=== PATIENT | female | born 1945 | race Caucasian/White ===

== ENCOUNTER → 2018-11-03 12:08 | Outpatient (CLI) | payer MEDICARE, MEDICAID, SELFPAY ==
--- NOTE | 2018-11-03 12:17 | CA_ITS ---
PROCEDURE: 2-D M-mode and color Doppler study INDICATIONS FOR THE TEST: Chest pain COPDX Heart Murmur Tobacco SmokingEX Palpitations Fatigue Syncope Edema HypertensionXDiabetes Mellitus Rheumatic Fever SOBXDOE Obesity HyperlipidemiaX Family History HD Additional History AF,CAD,BRADYCARDIA PATIENT INFORMATION HEIGHT: 62 WEIGHT:214 GENDER: Female B/P: 2-D/M-MODE INTERPRETATION: 2-D MEASUREMENTS OBSERVED VALUES IN CMS Right Ventricular Dimension (RVDd) 2.6 Interventricular Septum (Thickness)(IVsd) 1.2 Left Ventricular Internal Dimensions(LVIDd) 5.3 Left Ventricular Posterior Wall (Thickness)(LVPWd) .9 Aortic Root 3.0 Aortic Cusp Separation 1.7 Left Atrial Dimensions (LAD) 3.3 2D 1. Left atrium is mildly enlarged, left ventricle is normal size, mild concentric left ventricular hypertrophy, visually estimated ejection fraction 55% with no regional wall motion abnormality. 2. The right atrium and right ventricle are mildly enlarged with normal contractility. 3. The aortic valve is thickened and calcified leaflet continue to display mobility. 4. The mitral and tricuspid valve leaflets are minimally thickened. 5. The pulmonic valve is poorly visualized. 6. No significant pericardial effusion noted. DOPPLER INTERROGATION: Doppler interrogation of the aortic, mitral and tricuspid valvular presence of mild aortic, mild mitral and tricuspid regurgitation, tricuspid regurgitation jet velocity is inadequate for calculation of the right ventricular systolic pressure, grade 1 diastolic dysfunction seen with tissue Doppler evidence of raised left atrial pressure. CONCLUSION: 1. Mildly enlarged left atrium, normal left ventricular size, mild concentric left ventricular hypertrophy, visually estimated ejection fraction 55% with no regional wall motion abnormality, grade 1 diastolic dysfunction seen with tissue Doppler evidence of raised left atrial pressure. 2. Mildly enlarged right ventricle with normal contractility. 3. Mild aortic, mild mitral and tricuspid regurgitation 4. No significant pericardial effusion noted.
--- NOTE | 2018-11-03 12:45 | XR_ITS ---
XR chest 2V HISTORY: ITS.REASON: on amiodarone therapy ORDERING PHYSICIAN: Lanny Arriaga APRN PATIENT AGE: 73 years COMPARISON: None available FINDINGS: The cardiomediastinal silhouette and pulmonary vascularity are within normal limits. The lungs are clear without infiltrates, suspicious nodules, or pleural effusions. No acute bony abnormalities. There are surgical clips in the midline of the upper abdomen. IMPRESSION: Negative chest, no acute finding
[2018-11-03 14:50] LABS: Alanine Aminotransferase 10 U/L (12-78); Albumin Level 3.4 gm/dL (3.4-5.0); Alkaline Phosphatase 131 U/L (46-116); Anion Gap 15.1 mEq/L (5-15); Aspartate Amino Transferase 14 U/L (15-37); Bilirubin,Direct 0.2 mg/dL (0.0-0.2); Bilirubin,Indirect 0.5 mg/dL (0.0-0.9); Bilirubin,Total 0.7 mg/dL (0.2-1.0); Blood Urea Nitrogen 16 mg/dL (7-18); Calcium 8.4 mg/dL (8.5-10.1); Carbon Dioxide 26 mmol/L (21.0-32.0); Chloride 101 mmol/L (98-107); Creatinine,Serum 1.06 mg/dL (0.55-1.02); Estimated Glomerular Filt Rate 51 ml/min (>60); Free Thyroxine Index 4.2 ug/dL (5.93-13.13); GFR (African American) 61 ML/MIN (>60); Glucose 97 mg/dL (74-106); Potassium 4.1 mmoL/L (3.5-5.1); Sodium 138 mmol/L (136-145); T4 (Thyroxine) 11.6 ug/dl (4.7-13.3); Thyroid Stimulating Hormone 3.05 uIU/ml (0.358-3.740); Total Protein,Serum 7.2 gm/dL (6.4-8.2); Triiodothryronine (T3) Uptake 36 % (31-39)
[2018-11-03 15:42] LABS: Basophils % 0.6 % (0.1-2.0); Eosinophils # 0.1 K/mm3 (0.0-0.4); Eosinophils % 1.6 % (0.1-12.0); Hematocrit 34.4 % (37.0-47.0); Hemoglobin 10.7 g/dL (12.2-16.2); Lymphocytes % 29.6 % (10-50); Mean Corpuscular HGB Conc 31.2 g/dL (31.8-35.4); Mean Corpuscular Volume 83.5 fl (81-99); Mean Platelet Volume 7.9 fl (7.4-10.4); Monocytes # 0.4 K/mm3 (0.1-1.0); Monocytes % 6.1 % (1.7-9.3); Neutrophils # 4.2 K/mm3 (1.8-7.8); Neutrophils % 62.1 % (37.0-80.0); Platelet Count 334 K/mm3 (142-424); Red Blood Count 4.12 M/mm3 (4.20-5.40); Red Cell Distribution Width 14.1 % (11.5-17.5); White Blood Count 6.8 K/mm3 (4.8-10.8)
== END ==
PROVIDERS: PCP Registered Nurse General Practice; Visit Provider Nurse Practitioner Family
DX: I25.10 Atherosclerotic heart disease of native coronary artery without angina pectoris; E78.49 Other hyperlipidemia; I48.0 Paroxysmal atrial fibrillation; I50.32 Chronic diastolic (congestive) heart failure; I73.9 Peripheral vascular disease, unspecified; R06.02 Shortness of breath; R42 Dizziness and giddiness; R53.82 Chronic fatigue, unspecified; R94.31 Abnormal electrocardiogram [ECG] [EKG]; E78.5 Hyperlipidemia, unspecified; I11.9 Hypertensive heart disease without heart failure; I48.91 Unspecified atrial fibrillation; I50.30 Unspecified diastolic (congestive) heart failure; J44.9 Chronic obstructive pulmonary disease, unspecified; R00.1 Bradycardia, unspecified; R06.00 Dyspnea, unspecified; Z79.899 Other long term (current) drug therapy; F17.200 Nicotine dependence, unspecified, uncomplicated
CPT/HCPCS: 36415; 71046; 80048; 80076; 84436; 84443; 84479; 85025; 93306

== ENCOUNTER → 2019-05-05 10:22 | Outpatient (CLI) | payer MEDICARE, MEDICAID, SELFPAY ==
--- NOTE | 2019-05-05 10:33 | XR_ITS ---
PROCEDURE: XR CHEST 2V CLINICAL HISTORY: amio therapy Follow-up amiodarone therapy COMPARISON: No exams were available for comparison FINDINGS: The cardiomediastinal silhouette and pulmonary vascularity are within normal limits. Coronary artery calcium or stent noted. The lungs are clear. No evidence of amiodarone lung toxicity No acute bony abnormalities. IMPRESSION: No acute findings. Dictated by: Trever Ng MD 05/05/2019 18:37 Electronically signed by Trever Ng MD in [place] 05/05/2019 18:37
[2019-05-05 13:33] LABS: Alanine Aminotransferase 18 U/L (12-78); Albumin Level 3.5 gm/dL (3.4-5.0); Alkaline Phosphatase 96 U/L (46-116); Aspartate Amino Transferase 19 U/L (15-37); Bilirubin,Direct 0.1 mg/dL (0.0-0.2); Bilirubin,Indirect 0.5 mg/dL (0.0-0.9); Bilirubin,Total 0.6 mg/dL (0.2-1.0); Free Thyroxine Index 4.8 ug/dL (5.93-13.13); T4 (Thyroxine) 12.6 ug/dl (4.7-13.3); Thyroid Stimulating Hormone 2.65 uIU/ml (0.358-3.740); Total Protein,Serum 6.8 gm/dL (6.4-8.2); Triiodothryronine (T3) Uptake 38 % (31-39)
== END ==
LOC: LAB 10:27 → RAD 10:30
PROVIDERS: PCP Registered Nurse General Practice; Visit Provider Nurse Practitioner Family
DX: I11.9 Hypertensive heart disease without heart failure (principal); I25.10 Atherosclerotic heart disease of native coronary artery without angina pectoris; R00.1 Bradycardia, unspecified; R06.02 Shortness of breath; R00.2 Palpitations; R94.31 Abnormal electrocardiogram [ECG] [EKG]; R42 Dizziness and giddiness; E78.2 Mixed hyperlipidemia; J43.9 Emphysema, unspecified; I48.0 Paroxysmal atrial fibrillation; F17.200 Nicotine dependence, unspecified, uncomplicated
CPT/HCPCS: 36415; 71046; 80076; 84436; 84443; 84479

== ENCOUNTER 2020-05-01 08:41 | Day surgery (SDC) | payer MEDICARE, MEDICAID, SELFPAY ==
[2020-05-01] VITALS (12 sets, daily range): BP systolic 107–183; BP diastolic 54–87; PULSE 47–77; RESP 12–18; TEMP 36.6; O2SAT 90–97; BMI 37.3
--- NOTE | 2020-05-01 07:19 | IR_ITS ---
APPROVED REPORT Patient Location: Outpatient PROCEDURES Left heart catheterization Left ventriculogram Selective coronary angiogram INDICATION Known coronary artery disease, History of unprotected left main artery stenting, Unstable angina Informed consent was obtained prior to the procedure. COMPLICATIONS None Estimated Blood Loss: Less than 10 ml TECHNIQUE One percent lidocaine used to anesthetize the right anterior aspect of the wrist. The right radial artery was accessed via the Seldinger technique. A 6 [place] sheath was placed in the right radial artery. 2.5 mg of verapamil, 800 mcg of nitroglycerin, 1mg Lidocaine and 5000 U Heparin were given through the arterial sheath. The In Hand Guidespa catheter was used to perform selective coronary angiogram. At the end of the procedure the sheath was removed good hemostasis was achieved using Traclet band, patient was transferred to the postop holding area in stable condition. ANGIOGRAPHIC RESULTS The left main artery Is a stent in the proximal segment which is widely patent free of in-stent restenosis with excellent proximal distal transitioning The left anterior descending artery Is a large tortuous vessel and normal in the proximal segment with a mild 30% mid vessel myocardial bridge The circumflex artery Nondominant and normal The right coronary artery Large dominant with proximal 10 to 20% stenosis The GIVENS ventriculogram reveals Not performed The left ventricular end-diastolic pressure Not measured IMPRESSION Widely patent left main stent as described above 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 Medical management Electronically signed by : Nelson Higginbotham, 05/01/2020 10:53:13
[2020-05-01 09:46] LABS: Basophils # 0.1 K/mm3 (0-0.2); Basophils % 0.8 % (0.1-2.0); Eosinophils # 0.1 K/mm3 (0.0-0.4); Eosinophils % 1.6 % (0.1-12.0); Hemoglobin 13.6 g/dL (12.2-16.2); Lymphocytes % 29.5 % (10-50); Mean Corpuscular HGB Conc 32.4 g/dL (31.8-35.4); Mean Corpuscular Hemoglobin 29.9 pg (27.0-31.2); Mean Corpuscular Volume 92.2 fl (81-99); Monocytes # 0.4 K/mm3 (0.1-1.0); Monocytes % 6.5 % (1.7-9.3); Neutrophils # 4.2 K/mm3 (1.8-7.8); Neutrophils % 61.5 % (37.0-80.0); Platelet Count 282 K/mm3 (142-424); Red Blood Count 4.56 M/mm3 (4.20-5.40); Red Cell Distribution Width 13.5 % (11.5-17.5); White Blood Count 6.8 K/mm3 (4.8-10.8)
[2020-05-01 09:52] LABS: Chloride 105 mmol/L (98-107); Potassium 4.1 mmoL/L (3.5-5.1); Sodium 138 mmol/L (136-145)
[2020-05-01 09:55] LABS: Anion Gap 11.1 mEq/L (5-15); Blood Urea Nitrogen 20 mg/dl (7-17); Calcium 9.5 mg/dl (8.4-10.2); Carbon Dioxide 26 mmol/L (22.0-30.0); Creatinine Clearance Estimated 68 mL/min (50-200); Estimated Glomerular Filt Rate 48 ml/min (>60); GFR (African American) 58 ML/MIN (>60); Glucose 102 mg/dl (74-100)
[2020-05-01 10:22] LABS: Coronavirus 19 IgG Antibody Negative (Negative); Coronavirus 19 IgM Antibody Negative (Negative)
== END 2020-05-01 14:35 | disposition home or self-care (01) ==
LOC: CATHLAB 08:46
PROVIDERS: PCP Registered Nurse General Practice; Visit Provider Internal Medicine
DX: D64.9 Anemia, unspecified (principal); E78.2 Mixed hyperlipidemia; I48.0 Paroxysmal atrial fibrillation; J43.9 Emphysema, unspecified; R00.1 Bradycardia, unspecified; R00.2 Palpitations; R06.02 Shortness of breath; Z79.899 Other long term (current) drug therapy; Z87.891 Personal history of nicotine dependence; I25.110 Atherosclerotic heart disease of native coronary artery with unstable angina pectoris; I11.0 Hypertensive heart disease with heart failure; I50.32 Chronic diastolic (congestive) heart failure; Z79.51 Long term (current) use of inhaled steroids; Z95.5 Presence of coronary angioplasty implant and graft
CPT/HCPCS: 80048; 85025; 86328; 93458; 99152; C1725; C1769; J1644; Q9967

== ENCOUNTER → 2020-06-20 14:59 | Outpatient (CLI) | payer MEDICARE, MEDICAID, SELFPAY ==
--- NOTE | 2020-06-20 15:07 | CA_ITS ---
APPROVED REPORT EXAM: Comprehensive 2D, Doppler, and color-flow Echocardiogram Fox Raiser: Jayda Urbina CRT Ht: 5 ft 4 in Wt: 219lbs BSA: 2.03 BP: 97/61 mmHg Indications: Congestive Heart Failure, Shortness of Breath, Hyperlipidemia, Hypertension/HDD 2D Dimensions LVOT 1.92 cm (M/F) 1.5-2.5 M-Mode Dimensions RVDd 2.96 cm (0.9-2.6) LA Diam 3.64 cm (1.9-4.0) LVDd 5.85 cm (3.5-5.7) Ao Diam 4.50 cm (2.0-3.7) LVDs 2.85 cm (3.5-5.7) IVSd 1.14 cm (0.6-1.1) PWd 0.91 cm (0.6-1.1) EF (Teich) 81.80% FS 51.30% EDV (Teich) 169.90 mL ESV (Teich) 30.90 mL LV Diastology E Decel Time 220.00 (160-240 msec) E/A Ratio 0.81 MED E' 6.70 (< 7 cm/sec) E'/MED E' Ratio 14.58 (>14) LAT E' 7.60 (<10 cm/sec) E/LAT E' Ratio 12.86 (>14) Aortic Valve LVOT Max 193.00 (70-110 cm/s) LVOT VTI 39.38 cm AoV Peak Rafa. 197.00 (50-130 cm/s) AI PHT 644.00 ms AO Peak GR. 15.50 mmHg AO Mean GR. 7.80 (<5 mmHg) AO VTI 44.60 (18-25 cm) BEKAH (VTI) 2.56 (2.5-4.5 cm2) Mitral Valve MV A Velocity 120.00 (40-130 cm/s) E/A Ratio 0.81 MV Decel. Time 220.00 (160-240 ms) Pulmonary Valve PV Peak Velocity 63.00 (50-150 cm/s) Tricuspid Valve TR P. Velocity 143.00 cm/s Left Ventricle Left atrium is mildly enlarged, left ventricle is normal size, mild concentric left ventricular hypertrophy, visually estimated ejection fraction 55% with no regional wall motion abnormality, grade 1 diastolic dysfunction seen with tissue Doppler evidence of raise left atrial pressure. Right Ventricle Right atrium and right ventricle are mildly enlarged with normal contractility. Aortic Valve Aortic valve is thickened and calcified, Doppler is not indicated above aortic stenosis, there is mild aortic insufficiency. Mitral Valve Mitral valve leaflets are minimally thickened, there is mild mitral regurgitation. Tricuspid Valve Tricuspid valve is grossly normal, there is mild tricuspid regurgitation, tricuspid regurgitation jet velocity is inadequate for calculation of the right ventricular systolic pressure. Pulmonic Valve Pulmonic valve is poorly visualized. Great Vessels Aortic root is normal size. Pericardium No significant pericardial effusion noted. Conclusion 1. Mild biatrial enlargement, normal left ventricular size, mild concentric left ventricular hypertrophy, visually estimated ejection fraction 55% with no regional wall motion abnormality, grade 1 diastolic dysfunction seen with tissue Doppler evidence of raise left atrial pressure. 2. Mildly enlarged right ventricle with normal contractility. 3. Thickened and calcified aortic valve without Doppler evidence of aortic stenosis, there is mild aortic insufficiency. 4. Mild mitral and tricuspid regurgitation. 5. No significant pericardial effusion noted. Electronically signed by : Santos Willson, 06/21/2020 05:36:06
== END ==
PROVIDERS: PCP Registered Nurse General Practice; Visit Provider Urology
DX: E78.5 Hyperlipidemia, unspecified (principal); G47.33 Obstructive sleep apnea (adult) (pediatric); I25.10 Atherosclerotic heart disease of native coronary artery without angina pectoris; I48.91 Unspecified atrial fibrillation; I50.30 Unspecified diastolic (congestive) heart failure; R06.00 Dyspnea, unspecified; R94.31 Abnormal electrocardiogram [ECG] [EKG]; Z79.01 Long term (current) use of anticoagulants; Z79.899 Other long term (current) drug therapy; Z99.89 Dependence on other enabling machines and devices; I11.0 Hypertensive heart disease with heart failure
CPT/HCPCS: 93306

== ENCOUNTER → 2022-09-03 12:07 | Outpatient (CLI) | payer MEDICARE, MEDICAID, SELFPAY ==
--- NOTE | 2022-09-03 12:37 | CT_ITS ---
FINAL REPORT TECHNIQUE: Axial images were obtained through the chest without contrast. 1.[address] axial slices were performed through the chest at 10 mm intervals utilizing high-resolution protocol. Coronal and sagittal reformatted images were submitted. This study was performed with techniques to keep radiation doses as low as reasonably achievable (ALARA). Individualized dose reduction techniques using automated exposure control or adjustment of mA and/or kV according to the patient's size were employed. CLINICAL HISTORY: I10 - Essential (primary) hypertension, shortness of breath FINDINGS: CT CHEST W/O CONTRAST On the mediastinal window images, there is no mediastinal mass or adenopathy. The heart size is normal. There is no pericardial or pleural effusion. On the upper abdomen images, the gallbladder is not identified. On the lung window images, there is no definite infiltrate. On the high-resolution images there is no evidence of bronchiectasis. There is no significant fibrosis. IMPRESSION: No definite infiltrate. No evidence of bronchiectasis. No significant fibrosis. Reviewed, Interpreted and Dictated by Roberto Sanford MD Transcribed by Pooja Espinosa Authenticated and . [facility]
[2022-09-03 12:42] LABS: Basophils # 0.1 K/mm3 (0-0.2); Basophils % 0.6 % (0.1-2.0); Eosinophils # 0.1 K/mm3 (0.0-0.4); Eosinophils % 0.8 % (0.1-12.0); Hematocrit 27.2 % (37.0-47.0); Hemoglobin 7.9 g/dL (12.2-16.2); Lymphocytes % 24.1 % (10-50); Mean Corpuscular Hemoglobin 19.4 pg (27.0-31.2); Mean Corpuscular Volume 66.8 fl (81-99); Mean Platelet Volume 8.2 fl (7.4-10.4); Monocytes # 0.6 K/mm3 (0.1-1.0); Monocytes % 6.9 % (1.7-9.3); Neutrophils # 5.6 K/mm3 (1.8-7.8); Neutrophils % 67.6 % (37.0-80.0); Platelet Count 461 K/mm3 (142-424); Red Blood Count 4.07 M/mm3 (4.20-5.40); Red Cell Distribution Width 17.9 % (11.5-17.5); White Blood Count 8.2 K/mm3 (4.8-10.8)
[2022-09-03 13:10] LABS: Chloride 102 mmol/L (98-107); Sodium 135 mmol/L (136-145)
[2022-09-03 13:11] LABS: Potassium 4.3 mmoL/L (3.5-5.1)
[2022-09-03 13:13] LABS: Alanine Aminotransferase 20 U/L (12-78); Alkaline Phosphatase 118 U/L (38-126); Anion Gap 13.3 mEq/L (5-15); Aspartate Amino Transferase 27 U/L (14-36); Bilirubin,Direct 0.1 mg/dl (0.0-0.4); Bilirubin,Indirect 0.7 mg/dL (0.0-0.9); Bilirubin,Total 0.8 mg/dl (0.2-1.3); Bilirubin,Unconjugated 0.7 mg/dL (0.0-1.1); Blood Urea Nitrogen 22 mg/dl (7-17); Carbon Dioxide 24 mmol/L (22.0-30.0); Cholesterol 155 mg/dl (140-200); Estimated Glomerular Filt Rate 43 ml/min (>60); GFR (African American) 52 ML/MIN (>60); Triglycerides 98 mg/dl (30-150); VLDL Cholesterol 20 mg/dL (0-40)
[2022-09-03 13:14] LABS: Albumin Level 4.1 g/dl (3.5-5.0); Calcium 8.7 mg/dl (8.4-10.2); Chol/HDL Ratio 2.7 (1-3.5); Glucose 100 mg/dl (74-100); HDL Cholesterol 58 mg/dl (40-60); Total Protein,Serum 6.8 g/dl (6.3-8.2)
[2022-09-03 13:30] LABS: Free T4 (Free Thyroxine) 1.77 ng/dl (0.78-2.19)
[2022-09-03 13:45] LABS: Thyroid Stimulating Hormone 2.65 uIU/mL (0.465-4.68)
[2022-09-12 01:07] LABS: 1,25 Dihydroxy Vitamin D 42 pg/mL (.); 1,25-Dihydroxy, Vitamin D-2 <10 pg/mL (.); 1,25-Dihydroxy, Vitamin D-3 37 pg/mL (.)
== END ==
PROVIDERS: Visit Provider Internal Medicine
DX: R06.00 Dyspnea, unspecified (principal); R06.02 Shortness of breath; R00.1 Bradycardia, unspecified; I25.10 Atherosclerotic heart disease of native coronary artery without angina pectoris; I11.0 Hypertensive heart disease with heart failure; I50.32 Chronic diastolic (congestive) heart failure; I48.0 Paroxysmal atrial fibrillation; E78.2 Mixed hyperlipidemia; R94.31 Abnormal electrocardiogram [ECG] [EKG]; I63.9 Cerebral infarction, unspecified; E11.9 Type 2 diabetes mellitus without complications
CPT/HCPCS: 36415; 71250; 80048; 80061; 80076; 82652; 84439; 84443; 85025